=== PATIENT | female | born 1950 | race Caucasian/White ===

== ENCOUNTER 2016-03-25 10:26 | Outpatient (CLI) | payer MEDICARE ==
--- NOTE | 2016-03-25 14:45 | Ultrasound Report ---
ULTRASOUND SOFT TISSUE HEAD AND NECK: HISTORY: Hypercalcemia. FINDINGS: Targeted grayscale ultrasound was obtained of the thyroid with color Doppler interrogation. The thyroid gland is enlarged. The right lobe measures 7.0 x 2.9 x 3.7 cm. The left lobe measures 7.2 x 2.4 x 2.5 cm. The isthmus measures 1.2 cm. There are multiple bilateral hypoechoic lesions scattered throughout both lobes of the thyroid gland. Approximately 9 lesions are identified in the right lobe, 4 lesions in the left lobe and 4 lesions in the isthmus. Most of these appear to be millimetric cysts. The largest lesion measures 1.4 cm in the mid left thyroid lobe and appears to be predominantly solid. Overall, these lesions have a nonspecific and probably benign appearance. There is no evidence for cervical adenopathy. IMPRESSION: Thyromegaly with multiple small thyroid cysts and hypoechoic nodules. No suspicious nodule is appreciated on ultrasound. Consider surveillance.
== END 2016-03-25 10:27 | disposition home or self-care (01) ==
LOC: US 10:26
PROVIDERS: ATTEND Internal Medicine Nephrology
DX: E01.0 Iodine-deficiency related diffuse (endemic) goiter (principal)
CPT/HCPCS: 76536

== ENCOUNTER 2016-06-19 09:09 | Outpatient (CLI) | payer MEDICARE ==
--- NOTE | 2016-06-19 14:16 | Nuclear Medicine Report ---
NUCLEAR MEDICINE PARATHYROID SCAN: FINDINGS: History: Hypercalcemia. The initial scintigraphic images of the thyroid bed demonstrate normal and symmetric uptake of the radiotracer in the thyroid bed. Normal salivary and mediastinal activity is identified. The delayed images demonstrate normal washout of the radiotracer from the thyroid bed. No persistent activity is identified to suggest a parathyroid adenoma. IMPRESSION: Normal parathyroid scan. No parathyroid adenoma is detected.
== END 2016-06-19 09:10 | disposition home or self-care (01) ==
LOC: NM 09:09
PROVIDERS: ATTEND Internal Medicine Nephrology
DX: E21.3 Hyperparathyroidism, unspecified (principal); N18.2 Chronic kidney disease, stage 2 (mild)
CPT/HCPCS: 78070; A9500